=== PATIENT | female | born 1985 | race Caucasian/White ===

== ENCOUNTER 2017-07-23 09:55 | Emergency (ER) | payer MEDICAID ==
[2017-07-23] MEDS ORDERED: ACETAMINOPHEN 325 MG TABLET PO ONE (10:18)
[2017-07-23] MEDS ORDERED: IBUPROFEN 800 MG TABLET PO ONE (10:21)
--- NOTE | 2017-07-23 10:21 | ER Document Report ---
ED Medical Screen (RME) - General Chief Complaint: Abdominal Pain Stated Complaint: LOW ABDOMINAL PAIN Time Seen by Provider: 07/23/17 10:14 Notes: RME DISCLOSURE I have seen this patient as part of a Rapid Medical Evaluation and, if applicable, placed any initially appropriate orders. The patient will be seen and fully evaluated, including a full history and physical exam, by a provider ( in Main ED or Fast Track) when a room becomes available. 31-year-old female here with complaints of a bulge in her left pelvic region and states that over the past day or 2, she has noticed that with coughing she has had an increase in pain and bulging after coughing. She has been taking some [id number] pain medication for relief. Last bowel movement was 2 days ago and this is normal for her. No nausea/vomiting or abdominal pain/back pain. No prior history of hernias. Intra-abdominal surgeries include remote section. TRAVEL OUTSIDE OF THE [place] IN LAST 30 DAYS: No - Related Data Allergies/Adverse Reactions: No Known Allergies Allergy (Verified 07/23/17 10:06) Past Medical History - Social History Chew tobacco use (# tins/day): No Frequency of alcohol use: None Drug Abuse: None Renal/ Medical History: Denies: Hx Peritoneal Dialysis Past Surgical History: Reports: Hx Breast Surgery - Breast augmentation, Hx Section Physical Exam - Vital signs Vitals: Temp Pulse Resp BP Pulse Ox 98.5 F 84 16 120/71 100 07/23/17 10:12 07/23/17 10:12 07/23/17 10:12 07/23/17 10:12 07/23/17 10:12 Course - Vital Signs Vital signs: Temp Pulse Resp BP Pulse Ox 98.5 F 84 16 120/71 100 07/23/17 10:12 07/23/17 10:12 07/23/17 10:12 07/23/17 10:12 07/23/17 10:12
[2017-07-23 10:45] LABS: ABSOLUTE EOSINOPHILS # (AUTO) 0.1 10^3/uL (0.0-0.6); ABSOLUTE LYMPHOCYTES (AUTO) 2.1 10^3/uL (0.5-4.7); ABSOLUTE MONOCYTES (AUTO) 0.5 10^3/uL (0.1-1.4); ABSOLUTE NEUT (AUTO) 5.5 10^3/uL (1.7-8.2); BASOPHILS % (AUTO) 0.5 % (0-2); HEMATOCRIT 40.9 % (36.0-47.0); LYMPHOCYTES % (AUTO) 25.4 % (13-45); MEAN CORPUSCULAR HEMOGLOBIN 29.1 pg (27.0-33.4); MEAN CORPUSCULAR HGB CONC 34.2 g/dL (32.0-36.0); MEAN CORPUSCULAR VOLUME 85 fl (80-97); MONOCYTES % (AUTO) 5.7 % (3-13); PLATELET COUNT 310 10^3/uL (150-450); RED CELL DISTRIBUTION WIDTH 12.6 % (11.5-14.0); SEGMENTED NEUTROPHILS % (AUTO) 67.4 % (42-78); TOTAL CELLS COUNTED % (AUTO) 100 %; WHITE BLOOD COUNT 8.1 10^3/uL (4.0-10.5)
[2017-07-23 10:50] LABS: APPEARANCE,URINE SLIGHTLY-CLOUDY; BILIRUBIN,URINE NEGATIVE (NEGATIVE); COLOR,URINE YELLOW; GLUCOSE, URINE NEGATIVE (NEGATIVE); KETONES,URINE NEGATIVE (NEGATIVE); LEUKOCYTE ESTERASE,URINE LARGE (NEGATIVE); NITRITE,URINE NEGATIVE (NEGATIVE); PROTEIN,URINE NEGATIVE (NEGATIVE); UROBILINOGEN,URINE NEGATIVE mg/dL (<2.0)
[2017-07-23 11:13] LABS: ANION GAP 8 (5-19); BLOOD UREA NITROGEN 12 mg/dL (7-20); CALCIUM 9.2 mg/dL (8.4-10.2); CARBON DIOXIDE 31 mmol/L (22-30); CHLORIDE 104 mmol/L (98-107); GLUCOSE 103 mg/dL (75-110); POTASSIUM 3.9 mmol/L (3.6-5.0); SODIUM 143.3 mmol/L (137-145)
--- NOTE | 2017-07-23 12:01 | RADIOLOGY REPORT (SQ) ---
EXAM DESCRIPTION: CT ABD/PELVIS WITH IV ONLY COMPLETED DATE/TIME: 07/23/2017 11:47 am REASON FOR STUDY: L pelvic bulging; eval for hernia COMPARISON: None. TECHNIQUE: CT scan of the abdomen and pelvis performed using helical scanning technique with dynamic intravenous contrast injection. No oral contrast. Images reviewed with lung, soft tissue, and bone windows. Reconstructed coronal and sagittal MPR images reviewed. Delayed images for evaluation of the urinary system also acquired. All images stored on PACS. All CT scanners at this facility use dose modulation, iterative reconstruction, and/or weight based d osing when appropriate to reduce radiation dose to as low as reasonably achievable (ALARA). [facility]: Dose Right [facility]: CareDose [facility]: Dose Right [facility]: Teradose 4D [facility]: Biocept CONTRAST TYPE AND DOSE: contrast/concentration: Isovue 370.00 mg/ml; Total Contrast Delivered: 64.0 ml; Total Saline Delivered: 56.0 ml RENAL FUNCTION: BUN 12; creatinine 0.66 RADIATION DOSE: CT Rad equipment meets quality standard of care and radiation dose reduction techniq ues were employed. CTDIvol: 5.1 - 5.8 mGy. DLP: 553 mGy-cm.. LIMITATIONS: None. FINDINGS: LOWER CHEST: No significant findings. No nodules or infiltrates. LIVER: Normal size. No masses. No dilated ducts. SPLEEN: Normal size. No focal lesions. PANCREAS: No masses. No significant calcifications. No adjacent inflammation or peripancreatic fluid collections. Pancreatic duct not dilated. GALLBLADDER: No identified stones by CT criteria. No inflammatory changes to suggest cholecystitis. ADRENAL GLANDS: No significant masses or asymmetry. RIGHT KIDNEY AND URETER: No solid masses. No significant calcifications. No hydronephrosis or hyd roureter. LEFT KIDNEY AND URETER: No solid masses. No significant calcifications. No hydronephrosis or hydr oureter. AORTA AND VESSELS: No aneurysm. No dissection. Renal arteries, SMA, celiac without stenosis. RETROPERITONEUM: No retroperitoneal adenopathy, hemorrhage or masses. BOWEL AND PERITONEAL CAVITY: No masses or inflammatory changes. No free fluid or peritoneal masses. APPENDIX: Normal. PELVIS: No mass. A small moderate free fluid is likely physiologic. Normal bladder. Status post bi lateral tubal ligation. ABDOMINAL WALL: Mild rectus diastasis at the level of the emboli kiss. A small amount of fluid with adjacent superficial soft tissue stranding is seen within the extraperitoneal left inguinal region (a xial images 74 through 86). BONES: No significant or acute findings. OTHER: No other significant finding. IMPRESSION: Superficial left inguinal fluid collection with adjacent superficial soft tissue strandi ng. No evidence of inguinal hernia. TECHNICAL DOCUMENTATION: JOB ID: [id number] Quality ID # [id number]: Final reports with documentation of one or more dose reduction techniques (e.g., Au tomated exposure control, adjustment of the mA and/or kV according to patient size, use of iterative reconstruction technique) 2010 [employer]- All Rights Reserved Reading location - IP/workstation name: [email or web address]
[2017-07-23] MEDS ORDERED: PSEUDOEPHEDRINE HCL 30 MG TABLET PO ONE (13:24)
[2017-07-23] MEDS ORDERED: GUAIFENESIN 600 MG TABLET.SA PO ONE (13:24)
[2017-07-23] MEDS ORDERED: LORATADINE 10 MG TABLET PO ONE (13:24)
--- NOTE | 2017-07-23 13:30 | ER Document Report ---
ED GI/ - General Chief Complaint: Abdominal Pain Stated Complaint: LOW ABDOMINAL PAIN Time Seen by Provider: 07/23/17 10:14 Mode of Arrival: Ambulatory Information source: Patient Notes: 31-year-old female presented ED for complaint of bulging below her on the left side. She states she has also been coughing and congestion. She states the area below her is painful at times worse when you touch it there is some swelling to the left side of her pubic bone. She is alert and oriented speaks in full sentences walks with a even steady gait respirations even and unlabored. Patient is in no acute distress at time of exam. TRAVEL OUTSIDE OF THE [place] IN LAST 30 DAYS: No - HPI Patient complains to provider of: Other - Patient complains of bulging swelling and pain on the left area of her pelvic below her which was 3-4 years ago. She also complains of upper respiratory infection symptoms. Onset: Other - Several days Timing/Duration: Gradual Quality of pain: Burning Severity at maximum: Mild Severity in ED: Mild Pain Level: 1 Location: Pelvis - Pelvis Associated symptoms: Other - Cough cold congestion and mild swelling and pain below the left side of her Exacerbated by: Movement, Walking Relieved by: Denies Similar symptoms previously: Yes Recently seen / treated by doctor: No - Related Data Allergies/Adverse Reactions: No Known Allergies Allergy (Verified 07/23/17 10:06) Past Medical History - General Information source: Patient - Social History Smoking Status: Never Smoker Cigarette use (# per day): No Chew tobacco use (# tins/day): No Smoking Education Provided: No Frequency of alcohol use: None Drug Abuse: None Lives with: Family Family History: None Patient has suicidal ideation: No Patient has homicidal ideation: No - Past Medical History Cardiac Medical History: Reports: None Pulmonary Medical History: Reports: None EENT Medical History: Reports: None Neurological Medical History: Reports: None Endocrine Medical History: Reports: None Renal/ Medical History: Reports: None Malignancy Medical History: Reports: None GI Medical History: Reports: None Musculoskeltal Medical History: Reports None Skin Medical History: Reports None Psychiatric Medical History: Reports: None Traumatic Medical History: Reports: None Infectious Medical History: Reports: None Past Surgical History: Reports: Hx Breast Surgery - Breast augmentation, Hx Section Review of Systems - Review of Systems Constitutional: Recent illness EENT: No symptoms reported, Nose discharge, Sinus pressure, Sinus discharge, Throat pain Cardiovascular: No symptoms reported Respiratory: No symptoms reported Gastrointestinal: Abdominal pain - Below the on the left side Genitourinary: No symptoms reported Female Genitourinary: No symptoms reported Musculoskeletal: No symptoms reported Skin: No symptoms reported Hematologic/Lymphatic: No symptoms reported Neurological/Psychological: No symptoms reported -: Yes All other systems reviewed and negative Physical Exam - Vital signs Vitals: Temp Pulse Resp BP Pulse Ox 98.5 F 84 16 120/71 100 07/23/17 10:12 07/23/17 10:12 07/23/17 10:12 07/23/17 10:12 07/23/17 10:12 Interpretation: Normal - General General appearance: Appears well, Alert - HEENT Head: Normocephalic, Atraumatic Eyes: Normal Pupils: PERRL Ears: Normal External canal: Normal Tympanic membrane: Normal Sinus: Normal Nasal: Purulent discharge, Swelling Mouth/Lips: Normal Mucous membranes: Normal Pharynx: Post nasal drainage Neck: Normal - Respiratory Respiratory status: No respiratory distress Chest status: Nontender Breath sounds: Normal Chest palpation: Normal - Cardiovascular Rhythm: Regular Heart sounds: Normal auscultation Murmur: No - Abdominal Inspection: Normal Distension: No distension Bowel sounds: Normal Tenderness: Tender - Just below the on the left side Organomegaly: No organomegaly - Back Back: Normal, Nontender - Extremities General upper extremity: Normal inspection, Nontender, Normal color, Normal ROM , Normal temperature General lower extremity: Normal inspection, Nontender, Normal color, Normal ROM , Normal temperature, Normal weight bearing. No: Quinton's sign - Neurological Neuro grossly intact: Yes Cognition: Normal Orientation: AAOx4 Jeremy Coma Scale Eye Opening: Spontaneous [place] Coma Scale Verbal: Oriented Jeremy Coma Scale Motor: Obeys Commands Jeremy Coma Scale Total: 15 Speech: Normal Motor strength normal: LUE, RUE, LLE, RLE Sensory: Normal - Psychological Associated symptoms: Normal affect, Normal mood - Skin Skin Temperature: Warm Skin Moisture: Dry Skin Color: Normal Course - Re-evaluation Re-evalutation: 07/23/17 22:13 Patient was seen in triage by Dr. Garrido. Labs and CT were ordered. Results were discussed with the patient after her exam was completed. She did have some tenderness to the right lower abdomen just below scar from her previous C- section which she stated with her 4 years ago. There was no evidence of a hernia or any cellulitis in the area of her discomfort. There was a minimal amount of swelling in the area she was pointing to. There was no redness no inflammation and no fluctuance. Patient was instructed to follow-up with surgery for evaluation of this area. A copy of her CT and labs were given to her to follow-up with her primary doctor and with surgical. - Vital Signs Vital signs: Temp Pulse Resp BP Pulse Ox 98.1 F 65 16 98/63 L 100 07/23/17 14:01 07/23/17 14:01 07/23/17 14:01 07/23/17 14:01 07/23/17 14:01 - Laboratory Result Diagrams: 07/23/17 10:35 07/23/17 10:35 Laboratory results interpreted by me: 07/23/17 07/23/17 10:35 10:35 Carbon Dioxide 31 H Urine Blood SMALL H Ur Leukocyte Esterase LARGE H Discharge - Discharge Clinical Impression: Pain left lower abdomen below Condition: Stable Disposition: HOME, SELF-CARE Additional Instructions: You were seen today for a "bulge" your scar on the left side. He states this just started recently. You state your bulges started recently and is very painful and you were concerned about an inguinal hernia Your CAT scan does not show an inguinal hernia. It does show a fluid-filled area with some straining to the surrounding area. Your labs are normal at this time. I am going to refer you to a surgeon to have this area be assessed. Tylenol and Motrin for your discomfort Epson salt warm packs may help with the discomfort Epsom Salt Soaks Soak the wound area in a container of warm epsom salt water. If you can't get the wound area into a bucket or payne, use a folded towel soaked in the epsom salt solution and apply to the area. Use clean hot tap water (about the temperature of a very warm bath), mixing in about one (1) teaspoon for every pint of water. Two gallon --> 16 teaspoons Epsom Salts One gallon --> 8 teaspoons Epsom Salts Two quarts --> 4 teaspoons Epsom Salts One quart --> 2 teaspoons Epsom Salts Soak the wound for about 20 minutes while gently moving it around in the water. Repeat this four (4) times a day. FOLLOW-UP CARE: If you have been referred to a physician for follow-up care, call the physician s office for an appointment as you were instructed or within the next two days. If you experience worsening or a significant change in your symptoms, notify the physician immediately or return to the Emergency Department at any time for re-evaluation. Prescriptions: Ibuprofen 600 mg PO Q8HP PRN #20 tablet PRN Reason: Forms: Return to Work Referrals: JANICE ROCHA NP [Primary Care Provider] - Follow up as needed [facility] [Provider Group] - Follow up as needed
[2017-07-23 14:02] VITALS: BP 98/63
== END 2017-07-23 14:02 | disposition home or self-care (01) ==
LOC: ER 09:55
DX: R10.30 Lower abdominal pain, unspecified (principal)
CPT/HCPCS: 99284; 36415; 85025; 81025; 80048; 81001; 74177; J3490 ×3

== ENCOUNTER 2017-07-28 10:42 | Emergency (ER) | payer MEDICAID ==
[2017-07-28 10:54] VITALS: BP 119/73
--- NOTE | 2017-07-28 11:19 | ER Document Report ---
ED General - General Chief Complaint: Pelvic Pain Stated Complaint: PELVIC PAIN Mode of Arrival: Ambulatory Information source: Patient Notes: Patient presents with swelling to the left side of her mons pubis. Patient was seen here several days ago and a CT scan was done. CT scan was unremarkable. She did have a fluid collection under the area on CT scan. Since that time she states become slightly more painful. She does not feel that it is increased in size however. She denies any GI or urinary symptoms. The area is worse when touched and better if left alone. There are no significant radiation of symptoms. Symptoms are constant. They are mild to moderate. She denies any known trauma but states she has been coughing significantly. TRAVEL OUTSIDE OF THE [place] IN LAST 30 DAYS: No - Related Data Allergies/Adverse Reactions: No Known Allergies Allergy (Verified 07/28/17 10:44) Past Medical History - Social History Smoking Status: Never Smoker Chew tobacco use (# tins/day): No Frequency of alcohol use: None Drug Abuse: None Family History: None Patient has suicidal ideation: No Patient has homicidal ideation: No Renal/ Medical History: Denies: Hx Peritoneal Dialysis Past Surgical History: Reports: Hx Breast Surgery - Breast augmentation, Hx Section Review of Systems - Review of Systems Constitutional: denies: Chills, Fever Cardiovascular: denies: Chest pain, Palpitations Respiratory: Cough. denies: Short of breath Physical Exam - Vital signs Vitals: Temp Pulse Resp BP Pulse Ox 98.7 F 83 16 119/73 100 07/28/17 10:53 07/28/17 10:53 07/28/17 10:53 07/28/17 10:53 07/28/17 10:53 Interpretation: Normal - General General appearance: Appears well, Alert In distress: None - HEENT Head: Normocephalic, Atraumatic Eyes: Normal Pupils: PERRL - Respiratory Respiratory status: No respiratory distress Breath sounds: Normal - Cardiovascular Murmur: No - Abdominal Inspection: Normal Distension: No distension Bowel sounds: Normal Tenderness: Nontender Organomegaly: No organomegaly - Genitourinary External exam: Other - Patient has a mildly tender hematoma on the left side of her mons pubis. The rest of the external vaginal area is unremarkable and nontender. Exam seems most consistent with a tender hematoma. - Extremities General upper extremity: Normal inspection, Nontender, Normal color, Normal ROM , Normal temperature General lower extremity: Normal inspection, Nontender, Normal color, Normal ROM , Normal temperature, Normal weight bearing. No: Quinton's sign - Neurological Neuro grossly intact: Yes Cognition: Normal Orientation: AAOx4 [place] Coma Scale Eye Opening: Spontaneous [place] Coma Scale Verbal: Oriented Jeremy Coma Scale Motor: Obeys Commands [place] Coma Scale Total: 15 Speech: Normal Motor strength normal: LUE, RUE, LLE, RLE Sensory: Normal - Psychological Associated symptoms: Normal affect, Normal mood - Skin Skin Temperature: Warm Skin Moisture: Dry Skin Color: Normal Course - Re-evaluation Re-evalutation: 07/28/17 11:16 Patient has some mild swelling to her mons pubis on the left. It is discolored consistent with a hematoma. It does not appear consistent with cellulitis or abscess. CT several days ago shows no evidence of hernia. There was a small fluid collection which would appear to have been blood from the hematoma. Patient has normal vital signs are unremarkable exam otherwise. I feel the best course at this time is outpatient follow-up. - Vital Signs Vital signs: Temp Pulse Resp BP Pulse Ox 98.7 F 83 16 119/73 100 07/28/17 10:53 07/28/17 10:53 07/28/17 10:53 07/28/17 10:53 07/28/17 10:53 Discharge - Discharge Clinical Impression: Hematoma and contusion Condition: Stable Disposition: HOME, SELF-CARE Instructions: Hematoma ([facility]) Additional Instructions: Please follow-up with your physician as scheduled. Forms: Return to Work
== END 2017-07-28 11:30 | disposition home or self-care (01) ==
LOC: ER 10:42
DX: S30.0XXA Contusion of lower back and pelvis, initial encounter (principal); R10.2 Pelvic and perineal pain; X58.XXXA Exposure to other specified factors, initial encounter; R05 Cough
CPT/HCPCS: 99283

== ENCOUNTER 2019-12-15 11:43 | Emergency (ER) | payer MEDICAID ==
--- NOTE | 2019-12-15 12:17 | ER Document Report ---
ED Medical Screen (RME) - General Chief Complaint: Syncope Stated Complaint: SYNCOPE Primary Care Provider: JANICE ROCHA NP [Primary Care Provider] - Follow up as needed Notes: Patient is a 34-year-old white female with no reported past medical history presents to the emergency department with a chief complaint of syncopal episode. 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 She states she was standing with her knees locked bent over changing the patient's wound dressing. She states that she got done stood upright and started to walk out of the room and suddenly felt hot. She states that she told them she did not feel well and needed to sit down and shortly after she reports feeling weak and notes that they helped her to the ground. She states she thinks she did black out and 1 of the nurses witnessed reports that she was unconscious for approximately 45 seconds. Patient reports this is only ever happened once before when she was . She states she is status post tubal ligation and no chance of . She reports feeling completely asymptomatic now. Denies any chest pain or shortness of breath. No extremity weakness or headache. No visual disturbances or dizziness. She reports they checked her blood sugar and it was 110 despite not eating breakfast this morning. They report her blood pressure was 90 systolic. Upon triage has improved to about 110-1 18 systolic. I have treated and performed a rapid initial assessment of this patient. A comprehensive ED assessment and evaluation of the patient, analysis of test results and completion of medical decision making process will be conducted by additional ED providers. We will hold off on CT head imaging for more in-depth evaluation in the back by alternate ED provider. PHYSICAL EXAMINATION: GENERAL: Well-appearing, well-nourished and in no acute distress. A&Ox4. Answers questions appropriately. TRAVEL OUTSIDE OF THE [place] IN LAST 30 DAYS: No - Related Data Allergies/Adverse Reactions: No Known Allergies Allergy (Verified 07/28/17 10:44) Past Medical History - Social History Chew tobacco use (# tins/day): No Frequency of alcohol use: None Drug Abuse: None Renal/ Medical History: Denies: Hx Peritoneal Dialysis Past Surgical History: Reports: Hx Breast Surgery - Breast augmentation, Hx Section Physical Exam - Vital signs Vitals: Temp Pulse Resp BP Pulse Ox 98.4 F 71 18 118/74 100 12/15/19 12:04 12/15/19 12:04 12/15/19 12:04 12/15/19 12:04 12/15/19 12:04 Course - Vital Signs Vital signs: Temp Pulse Resp BP Pulse Ox 98.4 F 71 18 118/74 100 12/15/19 12:04 12/15/19 12:04 12/15/19 12:04 12/15/19 12:04 12/15/19 12:04 Doctor's Discharge - Discharge Referrals: JANICE ROCHA NP [Primary Care Provider] - Follow up as needed
[2019-12-15 12:42] LABS: ABSOLUTE BASOPHILS # (AUTO) 0.1 10^3/uL (0.0-0.2); ABSOLUTE LYMPHOCYTES (AUTO) 1.9 10^3/uL (0.5-4.7); ABSOLUTE MONOCYTES (AUTO) 0.3 10^3/uL (0.1-1.4); ABSOLUTE NEUT (AUTO) 3.6 10^3/uL (1.7-8.2); BASOPHILS % (AUTO) 1.2 % (0-2); EOSINOPHILS % (AUTO) 0.6 % (0-6); HEMATOCRIT 38.8 % (36.0-47.0); HEMOGLOBIN 13.4 g/dL (12.0-15.5); LYMPHOCYTES % (AUTO) 32.2 % (13-45); MEAN CORPUSCULAR HEMOGLOBIN 29.6 pg (27.0-33.4); MEAN CORPUSCULAR HGB CONC 34.5 g/dL (32.0-36.0); MEAN CORPUSCULAR VOLUME 86 fl (80-97); MONOCYTES % (AUTO) 5.2 % (3-13); PLATELET COUNT 256 10^3/uL (150-450); RED BLOOD COUNT 4.54 10^6/uL (3.72-5.28); RED CELL DISTRIBUTION WIDTH 12.2 % (11.5-14.0); SEGMENTED NEUTROPHILS % (AUTO) 60.8 % (42-78); TOTAL CELLS COUNTED % (AUTO) 100 %
[2019-12-15 12:49] LABS: APPEARANCE,URINE CLOUDY; BILIRUBIN,URINE NEGATIVE (NEGATIVE); COLOR,URINE YELLOW; GLUCOSE, URINE NEGATIVE (NEGATIVE); KETONES,URINE TRACE mg/dL (NEGATIVE); PROTEIN,URINE 30 mg/dL (NEGATIVE); URINE SPECIFIC GRAVITY 1.029
--- NOTE | 2019-12-15 13:04 | RADIOLOGY REPORT (SQ) ---
EXAM DESCRIPTION: CHEST SINGLE VIEW IMAGES COMPLETED DATE/TIME: 12/15/2019 12:51 pm REASON FOR STUDY: syncope and collapse COMPARISON: None. EXAM PARAMETERS: NUMBER OF VIEWS: One view. TECHNIQUE: An AP view of the chest was obtained. RADIATION DOSE: NA LIMITATIONS: None. FINDINGS: LUNGS AND PLEURA: No consolidation, pleural effusion or pneumothorax. MEDIASTINUM AND HILAR STRUCTURES: No mediastinal or hilar contour abnormality. HEART AND VASCULAR STRUCTURES: The cardiac silhouette and pulmonary vasculature are within normal page its. BONES: No acute findings. HARDWARE: None in the chest. OTHER: No other finding. IMPRESSION: No acute cardiopulmonary process. TECHNICAL DOCUMENTATION: JOB ID: [id number] 2010 [employer]- All Rights Reserved Reading location - IP/workstation name: [email or web address]
[2019-12-15 13:06] LABS: ALBUMIN 4.6 g/dL (3.5-5.0); ALKALINE PHOSPHATASE 46 U/L (38-126); ANION GAP 8 (5-19); ASPARTATE AMINO TRANSFERASE 23 U/L (14-36); BILIRUBIN,DIRECT 0.2 mg/dL (0.0-0.4); BILIRUBIN,TOTAL 0.5 mg/dL (0.2-1.3); BLOOD UREA NITROGEN 18 mg/dL (7-20); CALCIUM 9.4 mg/dL (8.4-10.2); CARBON DIOXIDE 26 mmol/L (22-30); CHLORIDE 105 mmol/L (98-107); CREATINE KINASE 63 U/L (30-135); GLUCOSE 95 mg/dL (75-110); TOTAL PROTEIN 7.1 g/dL (6.3-8.2)
--- NOTE | 2019-12-15 17:22 | ER Document Report ---
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 Patient had just finished changing the wound dressing, had not eaten breakfast, was standing with locked knees and when she finished the dressing became flushed, lightheaded and passed out. She states that she was told she was out for several seconds. Denies chest pain shortness of breath. States she feels much better currently. Denies injury from the fall. ROS: See HPI - all other systems were reviewed and are otherwise negative Constitutional: no fever Eyes: no drainage, no blurred vision ENT: no runny nose, no sore throat Cardiovascular: no chest pain Resp: no SOB, no cough GI: no vomiting, no diarrhea, no abdominal pain : no dysuria Integumentary: no rash Allergy: no hives Musculoskeletal: no extremity pain or swelling Neurological: no numbness/tingling, no weakness, positive syncopal episode. MEDICATIONS: I agree with the patient medications as charted by the RN. ALLERGIES: I agree with the allergies as charted by the RN. PAST MEDICAL HISTORY/PAST SURGICAL HISTORY: Reviewed and agree as charted by RN. SOCIAL HISTORY: Reviewed and agree as charted by RN. FAMILY HISTORY: No significant familial comorbid conditions directly related to patient complaint EXAM: Reviewed vital signs as charted by RN. CONSTITUTIONAL: Alert and oriented and responds appropriately to questions. Well-appearing; well-nourished HEAD: Normocephalic; atraumatic EYES: PERRL; Conjunctivae clear, sclerae non-icteric. No nystagmus ENT: normal nose; no rhinorrhea; moist mucous membranes; pharynx without lesions noted, no uvula edema or deviation, no tonsillar hypertrophy, phonation normal NECK: Supple without meningismus; non-tender; no cervical lymphadenopathy, no masses CARD: RRR; no murmurs, no clicks, no rubs, no gallops; symmetric distal pulses RESP: Normal chest excursion without splinting or tachypnea; breath sounds clear and equal bilaterally; no wheezes, no rhonchi, no rales, pulse oximetry 100% on room air not hypoxic ABD/GI: Normal bowel sounds; non-distended; soft, non-tender, no rebound, no guarding; no palpable organomegaly or masses. BACK: The back appears normal and is non-tender to palpation, there is no CVA tenderness EXT: Normal ROM in all joints; non-tender to palpation; no cyanosis, no effusio ns, no edema SKIN: Normal color for age and race; warm; dry; good turgor; no acute lesions noted NEURO: Moves all extremities equally; Motor and sensory function intact. Strength equal 5/5 bilateral upper and lower extremities. Sensation intact and equal all extremities. 34-year-old female who had a vasovagal syncopal episode on the floor PSYCH: The patient's mood and manner are appropriate. Grooming and personal hygiene are appropriate. MDM: Well at work. Did not eat this morning and just finished a procedure where she had locked her knees. Screening lab work-up via triage process did not show any acute abnormalities. EKG normal sinus rhythm with a ventricular rate of 70 without other ectopy. Reviewed by emergency department attending. VT 148. QT 376. Will discharge patient to home advising her to eat in the morning before she goes in for clinicals. TRAVEL OUTSIDE OF THE [place] IN LAST 30 DAYS: No - Related Data Allergies/Adverse Reactions: No Known Allergies Allergy (Verified 07/28/17 10:44) Past Medical History - Social History Smoking Status: Never Smoker Chew tobacco use (# tins/day): No Frequency of alcohol use: None Drug Abuse: None Family History: None Renal/ Medical History: Denies: Hx Peritoneal Dialysis Past Surgical History: Reports: Hx Breast Surgery - Breast augmentation, Hx Section Physical Exam - Vital signs Vitals: Temp Pulse Resp BP Pulse Ox 98.4 F 71 18 118/74 100 12/15/19 12:04 12/15/19 12:12/15/19 12:12/15/19 12:12/15/19 12:04 Course - Vital Signs Vital signs: Temp Pulse Resp BP Pulse Ox 98.4 F 71 18 118/74 100 12/15/19 12:12/15/19 12:12/15/19 12:12/15/19 12:12/15/19 12:04 - Laboratory Result Diagrams: 12/15/19 12:27 12/15/19 12:27 Laboratory results interpreted by me: 12/15/19 12:27 Urine Protein 30 H Urine Ketones TRACE H Urine Urobilinogen 2.0 H Leukocyte Esterase Rfl MODERATE H Discharge - Discharge Clinical Impression: Vasovagal syncope Condition: Stable Disposition: HOME, SELF-CARE Additional Instructions: Follow-up with your primary care provider for further evaluation as needed. Make sure that you eat in the morning. You are cleared to drive at this time. Referrals: JANICE ROCHA NP [Primary Care Provider] - Follow up as needed
[2019-12-15 17:57] VITALS: BP 113/84
--- NOTE | 2019-12-15 23:34 | EKG REPORT ---
SEVERITY:- NORMAL ECG - SINUS RHYTHM : Confirmed by: Mia Oliver MD 15-Dec-2019 23:33:57
== END 2019-12-15 17:55 | disposition home or self-care (01) ==
LOC: ER 11:43
DX: R55 Syncope and collapse (principal); R42 Dizziness and giddiness
CPT/HCPCS: 36415; 71045; 80053; 81001; 82550; 84484; 84703; 85025; 93005; 93010; 99285

== ENCOUNTER → 2020-01-23 | Outpatient (CLI) | payer MEDICAID | LOC: OD 14:31 | PROVIDERS: ATTEND Otolaryngology | DX: J30.9 Allergic rhinitis, unspecified (principal) | CPT/HCPCS: 36415; 82785; 86003 ==

== ENCOUNTER 2020-03-17 15:17 | Emergency (ER) | payer MEDICAID ==
[2020-03-17 15:46] VITALS: BP 113/81
--- NOTE | 2020-03-17 16:00 | ER Document Report ---
ED Wound - General Chief Complaint: Incision Drainage Stated Complaint: DRAINAGE POST SCALP SURGERY Time Seen by Provider: 03/17/20 15:46 Primary Care Provider: JANICE ROCHA NP [Primary Care Provider] - Follow up as needed Notes: CHIEF COMPLAINT: Wound check HPI: 34-year-old female who had possible skin cancer from the right upper forehead region surgically removed at [facility] at the beginning of February presenting for wound check. Patient states that she followed back up 2 weeks after her initial surgery where she had sutures placed after the removal. Patient states that her biopsy was negative for cancer. Patient states they remove the stitches and the wound opened up. They attempted to put Dermabond over the wound area. Patient states that the edge of the Dermabond lifted today and she has had some serous drainage from the wound area and is concerned about that. She states she is on Augmentin currently for sinus infection ROS: See HPI - all other systems were reviewed and are otherwise negative Constitutional: no fever Eyes: no drainage, no blurred vision ENT: + runny nose, no sore throat Cardiovascular: no chest pain Resp: no SOB, no cough GI: no vomiting, no diarrhea, no abdominal pain : no dysuria Integumentary: + rash Allergy: no hives Musculoskeletal: no extremity pain or swelling Neurological: no numbness/tingling, no weakness MEDICATIONS: I agree with the patient medications as charted by the RN. ALLERGIES: I agree with the allergies as charted by the RN. PAST MEDICAL HISTORY/PAST SURGICAL HISTORY: Reviewed and agree as charted by RN. SOCIAL HISTORY: Reviewed and agree as charted by RN. FAMILY HISTORY: No significant familial comorbid conditions directly related to patient complaint EXAM: Reviewed vital signs as charted by RN. CONSTITUTIONAL: Alert and oriented and responds appropriately to questions. Well-appearing; well-nourished HEAD: Normocephalic; atraumatic EYES: PERRL; Conjunctivae clear, sclerae non-icteric ENT: normal nose; + rhinorrhea; moist mucous membranes; pharynx without lesions noted NECK: Supple without meningismus; non-tender; no cervical lymphadenopathy, no masses CARD: Capillary refill less than 3 seconds RESP: Normal chest excursion without splinting or tachypnea ABD/GI: non-distended BACK: The back appears normal EXT: Normal ROM in all joints; no cyanosis, no effusions, no edema SKIN: Normal color for age and race; warm; dry; good turgor; there is a moderate amount of skin glue coagulated over the right upper forehead at the hairline. Unable to definitively visualize a wound under this but there is no drainage or surrounding erythema NEURO: Moves all extremities equally; Motor and sensory function intact PSYCH: The patient's mood and manner are appropriate. Grooming and personal hygiene are appropriate. MDM: 34-year-old female concerned about a wound area that her oncology office put Dermabond on. She will follow back up with the office tomorrow with the wound that had dehiscence after suture removal will likely need to heal by secondary intention and she will likely need plastics follow-up if there is a wound there underneath the Dermabond. She will have them remove the Dermabond in their office and schedule further follow-up through [facility] TRAVEL OUTSIDE OF THE [place] IN LAST 30 DAYS: No - Related Data Allergies/Adverse Reactions: No Known Allergies Allergy (Verified 07/28/17 10:44) Past Medical History - Social History Smoking Status: Unknown if Ever Smoked Family History: None Renal/ Medical History: Denies: Hx Peritoneal Dialysis Past Surgical History: Reports: Hx Breast Surgery - Breast augmentation, Hx Section Physical Exam - Vital signs Vitals: Temp Pulse Resp BP Pulse Ox 98.5 F 89 14 113/81 100 03/17/20 15:44 03/17/20 15:44 03/17/20 15:44 03/17/20 15:44 03/17/20 15:44 Course - Vital Signs Vital signs: Temp Pulse Resp BP Pulse Ox 98.5 F 89 14 113/81 100 03/17/20 15:44 03/17/20 15:44 03/17/20 15:44 03/17/20 15:44 03/17/20 15:44 Discharge - Discharge Clinical Impression: Post surgical complication Qualifiers: Surgical complication system/body Area: skin Surgical complication type: other Qualified Code(s): L76.82 - Other postprocedural complications of skin and subcutaneous tissue Condition: Stable Disposition: HOME, SELF-CARE Additional Instructions: Follow-up with your hematology oncology office tomorrow by phone to discuss further management and wound care as discussed Referrals: JANICE ROCHA NP [Primary Care Provider] - Follow up as needed
== END 2020-03-17 16:04 | disposition home or self-care (01) ==
LOC: ER 15:17
DX: L76.82 Other postprocedural complications of skin and subcutaneous tissue (principal)
CPT/HCPCS: 99282

== ENCOUNTER → 2020-05-10 | Outpatient (CLI) | payer MEDICAID ==
[~2020-05-10] MED LIST: COVID-19 VACCINE (PFIZER)/PF 30 MCG/0.3 ML VIAL IM ONE; EPINEPHRINE INJ/PF 1 MG/1 ML AMPULE IM PRN
== END ==
LOC: EMPHEALTH 14:25
PROVIDERS: ATTEND Internal Medicine
DX: Z23 Encounter for immunization (principal)
CPT/HCPCS: 91300